=== PATIENT | male | born 1950 | race Caucasian/White ===

== ENCOUNTER 2017-07-26 13:18 | Emergency (ER) | payer BC ==
[~2017-07-26] VITALS: Ht 177.8 cm; Wt 80.4 kg
[~2017-07-26 13:18] MED LIST: AMLODIPINE BESYL5 MG PO; ASACOL HD800 MG PO; ASPIRIN81 M2 PO; ATORVASTATIN CA20 MG PO; DOXYCYCLINE HY100 MG PO; ENALAPRIL MALEA20 MG PO; FISH OIL 1,2001 EAC4 PO; FLUOXETINE HCL20 MG PO; INDOMETHACIN50 MG PO; METHOCARBAMOL500 MG PO; PREDNISONE10 MG PO; QUESTRAN PACKET4 GM PO; TOBRADEX ST EYE5 ML BOTH EYES; TRAMADOL HCL50 MG PO
[2017-07-26 14:33] LABS: HEMATOCRIT 46.9 % (38.0-50.0); MCH 31.5 PG (29.0-34.0); MCHC 34.1 G/DL (30.0-36.0); MCV 92.3 FL (86-99); MEAN PLAT.VOLUME 10.2 uM^3 (9.0-12.4); PLATELET COUNT 284 K/uL (156-360); RBC DIS.WIDTH-CV 13.1 % (11.8-14.6); RBC DIS.WIDTH-SD 44.5 % (39-53); RED BLOOD COUNT 5.08 M/uL (4.00-5.50); WHITE BLOOD COUNT 14.5 K/uL (4.1-10.2)
[2017-07-26 14:42] LABS: CHLORIDE 107 mEq/L (99-109); POTASSIUM 4.4 mEq/L (3.7-5.4); SODIUM 143 mEq/L (136-147)
[2017-07-26 14:43] LABS: GLUCOSE 113 mg/dL (70-99)
[2017-07-26 14:45] LABS: ANION GAP 11 MEQ/L (2-14)
[2017-07-26 14:47] LABS: GFR ESTIMATE (CALCULATED) > 59 mL/min/
[2017-07-26 14:48] LABS: UREA NITROGEN (BUN) 11 mg/dL (9-23)
[2017-07-26 14:54] LABS: TROP-I INTERPRETATION NEGATIVE; TROPONIN-I 0.01 ng/mL (0.0-0.30)
[2017-07-26 17:24] LABS: TROP-I INTERPRETATION NEGATIVE; TROPONIN-I < 0.01 ng/mL (0.0-0.30)
[2017-07-26 18:40] VITALS: BP 141/86
== END 2017-07-26 18:44 | disposition home or self-care (01) ==
LOC: EME 13:18
PROVIDERS: Emergency Medicine
DX: R07.9 Chest pain, unspecified (principal); I10 Essential (primary) hypertension; F17.200 Nicotine dependence, unspecified, uncomplicated; Z82.3 Family history of stroke; K50.90 Crohn's disease, unspecified, without complications; N40.0 Benign prostatic hyperplasia without lower urinary tract symptoms; Z85.46 Personal history of malignant neoplasm of prostate; Z79.82 Long term (current) use of aspirin; Z88.0 Allergy status to penicillin
CPT/HCPCS: 71020; 80048; 84484; 85027; 93005; 99281; 99285